=== PATIENT | male | born 1960 | race Caucasian/White ===

== ENCOUNTER → 2024-12-01 | Outpatient (CLI) | payer OTHER ==
--- NOTE | 2024-12-01 12:58 | XR ---
EXAMINATION TYPE: XR shoulder complete RT DATE OF EXAM: 12/01/2024 12:44 PM COMPARISON: None. CLINICAL INDICATION: Male, 64 years old with history of G89.29 chronic R shoulder pain, pain TECHNIQUE: Three views of the right shoulder are obtained. FINDINGS: Demineralization is present. There is no acute fracture/dislocation evident in the right shoulder. Mild spurring and narrowing at the acromioclavicular joint. Glenohumeral joint is maintaine d. The visualized right lung is clear. Suspect old healed fractures of the anterior right third and f ourth ribs. IMPRESSION: The. [facility], , 12/01/2024 12:55 PM
--- NOTE | 2024-12-01 13:00 | XR ---
EXAMINATION TYPE: XR lumbosacral spine min 4V DATE OF EXAM: 12/01/2024 12:44 PM COMPARISON: None. CLINICAL INDICATION: Male, 64 years old with history of M54.50 chronic low back pain, pain TECHNIQUE: Frontal, lateral, and bilateral oblique images of the lumbar spine are obtained. FINDINGS: There are 5 lumbar type vertebral bodies identified. The lumbar spine shows slight grade 1 retrolisthesis L3 on L4. Vertebral body heights are within normal limits. Mild disc space narrowi ng at L3-L4 level. Mild to moderate multilevel anterior and lateral spurring in the mid to lower lumb ar spine. Mild overlying arteriovascular calcification of the abdominal aorta is seen. IMPRESSION: As above. [facility], , 12/01/2024 12:57 PM
--- NOTE | 2024-12-01 13:01 | XR ---
EXAMINATION TYPE: XR cervical spine comp DATE OF EXAM: 12/01/2024 12:44 PM COMPARISON: None. CLINICAL INDICATION: Male, 64 years old with history of N54.2 cervical pain, pain TECHNIQUE: Frontal, lateral, oblique, and open mouth view of the cervical spine are obtained. FINDINGS: The cervical spine is visualized from C1 thru the mid to lower C7 level, slight grade 1 re trolisthesis C5 on C6 is seen. The pre-vertebral soft tissue appears within normal limits. The C1-C 2 articulation is within normal limits on the open mouth view. Visualized vertebral body heights and disc space heights are within normal limits. Suboptimal evaluation of C7-T1 disc space noted. The ob lique images are within normal limits. Overlying soft tissue is unremarkable. IMPRESSION: As above. [facility], , 12/01/2024 12:59 PM
== END | disposition home or self-care (01) ==
LOC: RADXRMAIN 11:57
PROVIDERS: ATTEND Nurse Practitioner
DX: M25.511 Pain in right shoulder (principal); G89.29 Other chronic pain; M43.16 Spondylolisthesis, lumbar region
CPT/HCPCS: 72050; 72110

== ENCOUNTER → 2025-01-13 | Outpatient (CLI) | payer OTHER ==
--- NOTE | 2025-01-13 11:58 | CTL ---
EXAMINATION TYPE: CT Low Dose Lung DATE OF EXAM ORDERED: 01/13/2025 COMPARISON: None CLINICAL INDICATION: Male, 64 years old with history of F17.210 NICOTINE DEPENDENCE, CIGARETTES, UNCO MPLIC; PHH, Current smoker, 1PPD x40yrs., Lung cancer screening, History of Smoking/tobacco use. TECHNIQUE: Low dose computed tomography scan was performed through the chest at 1 mm thick sections a nd reconstructed images in multiple planes at 1 mm and [address] DLP: 122.[address] CTDI: 3.0 mGy Automated exposure control for dose reduction was used. CT DIAGNOSTIC QUALITY: Satisfactory FINDINGS: Nodules: Several scattered pulmonary nodules with examples below Left lower lobe 5.6 mm solid pulmonary nodule (series 6, image 53). Left upper lobe 4.3 mm pulmonary nodule (series 6, image 35). Posterior left upper lobe 2.5 mm pulmonary nodule (series 6, image 20). Left upper lobe 4.3 mm pulmonary nodule (series 6, image 14). Right lower lobe 6.1 mm subpleural pulmonary nodule (series 6, image 49). Right upper lobe 2.9 mm pulmonary nodule (series 6, image 19). Right middle lobe 4.1 mm pulmonary nodule (series 6, image 42). Adjacent right middle lobe 4.0 cm pul monary nodule (series 6, image 43). Anterior right middle lobe 6 pulmonary pulmonary nodule (series 6, image 51). LUNGS: COPD: Severity: None Fibrosis: Severity: None Lymph nodes: None Other findings: None RIGHT PLEURAL SPACE: Effusion: None Calcification: None Thickening: None Pneumothorax: None LEFT PLEURAL SPACE: Effusion: None Calcification: None Thickening: None Pneumothorax: None HEART: Heart Size: Normal Coronary Calcification: Moderate Pericardial Effusion: None OTHER FINDINGS: Upper abdomen: Small hiatal hernia. Bony thorax: Posterior right healed upper rib fractures with bridging. Supraclavicular region: None Other: None IMPRESSION: 1. Several scattered pulmonary nodules measuring up to 6.1 cm. 2. Moderate coronary artery calcifications. CT LUNG RAD AND CT CHEST RECOMMENDATION: Lung-Rad 2 Benign Appearance or Behavior: Continue annual sc reening with LDCT in 12 months. S Modifier (other clinically significant findings): None [facility], Workstation: [employer], 01/13/2025 11:55 AM
== END ==
LOC: CPPFTMAIN 10:14
PROVIDERS: ATTEND Internal Medicine
DX: Z12.2 Encounter for screening for malignant neoplasm of respiratory organs (principal); F17.210 Nicotine dependence, cigarettes, uncomplicated
CPT/HCPCS: 71271; 94060; 94726; 94729

== ENCOUNTER → 2025-01-20 | Outpatient (CLI) | payer OTHER ==
[2025-01-20 18:49] LABS: HCT 44.5 % (39.6-50.0); HGB 15.2 g/dL (13.0-17.0); MCH 30.8 pg (27.0-32.0); MCHC 34.2 g/dL (32.0-37.0); MCV 90.3 FL (80.0-97.0); Mean Platelet Volume 10.5 FL (9.5-12.2); NRBC Per 100 WBC 0 X 10*3/uL (0.00-0.01); Platelet Count 309 X 10*3/uL (140-440); RBC 4.93 X 10*6/uL (4.40-5.60); RDW 12.8 % (11.5-14.5); WBC 12.08 X 10*3/uL (4.50-10.00)
[2025-01-20 19:00] LABS: BUN/Creat Ratio 25.71 Ratio (12.00-20.00); Calcium 9.5 mg/dL (8.7-10.3); Carbon Dioxide 26.1 mmol/L (21.6-31.8); Chloride 98 mmol/L (96-109); Glucose 87 mg/dL (70-110); Potassium 4.9 mmol/L (3.5-5.5); Sodium 137 mmol/L (135-145)
== END | disposition home or self-care (01) ==
LOC: LABWHC1 12:39
PROVIDERS: ATTEND Internal Medicine Cardiovascular Disease
DX: R06.02 Shortness of breath (principal)
CPT/HCPCS: 36415; 80048; 85027

== ENCOUNTER → 2025-03-31 | Outpatient (CLI) | payer OTHER ==
[2025-03-31 16:05] LABS: Blood Urea Nitrogen 13.4 mg/dL (9.0-27.0); Carbon Dioxide 25.3 mmol/L (21.6-31.8); Chloride 102 mmol/L (96-109); Potassium 5.1 mmol/L (3.5-5.5); Sodium 138 mmol/L (135-145)
[2025-03-31 16:16] LABS: HCT 41.8 % (39.6-50.0); HGB 13.7 g/dL (13.0-17.0); MCH 30.5 pg (27.0-32.0); MCHC 32.8 g/dL (32.0-37.0); MCV 93.1 FL (80.0-97.0); Mean Platelet Volume 9.9 FL (9.5-12.2); NRBC Per 100 WBC 0 X 10*3/uL (0.00-0.01); Platelet Count 360 X 10*3/uL (140-440); RBC 4.49 X 10*6/uL (4.40-5.60); RDW 12.7 % (11.5-14.5); WBC 12.92 X 10*3/uL (4.50-10.00)
== END | disposition home or self-care (01) ==
LOC: LABPAT 10:40
PROVIDERS: ATTEND Internal Medicine Cardiovascular Disease
DX: Z01.812 Encounter for preprocedural laboratory examination (principal); R94.39 Abnormal result of other cardiovascular function study
CPT/HCPCS: 80051; 82565; 84520; 85027

== ENCOUNTER 2025-04-02 06:12 | Day surgery (SDC) | payer OTHER ==
[2025-03-31 14:13] VITALS: BMI 25.1
[~2025-04-02 06:12] MED LIST: ALPRAZolam 0.25 MG TAB PO PRN; ALPRAZolam 0.5 MG TAB PO PRN; ATORVASTATIN 80 MG TAB PO STA; NITROGLYCERIN SL TABS 0.4 MG TAB SUBLINGUAL PRN
[2025-04-02] MEDS: SODIUM CHLORIDE 0.9% 1,000 ML in EMPTY BAG 1 BAG IV SCH (06:31)
[2025-04-02] MEDS: ASPIRIN 325 MG TAB PO STA (06:34)
[2025-04-02] MEDS: IV FLUID CONTINUATION 1,000 ML IV ONE ×2 (06:35→09:00)
[2025-04-02 06:45] VITALS: RESP 16; TEMP 98.6
[2025-04-02] MEDS: HEPARIN SODIUM,PORCINE (1 ML) 2,500 UNIT in SODIUM CHLORIDE 0.9% 250 ML IRRIGATION PRN (07:23)
[2025-04-02] MEDS: HEPARIN SODIUM,PORCINE 10,000 UNIT in SODIUM CHLORIDE 0.9% 1,000 ML IRRIGATION PRN (07:23)
[2025-04-02] MEDS: MIDAZOLAM 2 MG/2 ML VIAL IVP ONE (07:38)
[2025-04-02] MEDS: fentaNYL (PF) 50 MCG/1 ML VIAL IVP ONE (07:38)
[2025-04-02] MEDS: LIDOCAINE 1% INJ 10MG/ML (20 ML MDV) SQ ONE (07:39)
[2025-04-02] MEDS: VERAPAMIL SYRINGE (5 MG/10 ML) INTRAARTER ONE (07:45)
[2025-04-02] MEDS: HEPARIN SODIUM 1,000 UN/ML (10ML VL) IVP ONE (07:46)
[2025-04-02] MEDS: IOPAMIDOL-370 100ML BTL INJ ONE (08:30)
[2025-04-02] MEDS: SODIUM CHLORIDE 0.9% 1,000 ML IV ONE (08:31)
--- NOTE | 2025-04-02 09:51 | CC ---
CARDIAC CATHETERIZATION REPORT INDICATION: Shortness of breath with abnormal stress test. PROCEDURE NOTE: After obtaining informed consent, left heart catheterization and coronary angiogram were performed via the right radial artery using standard Salvador catheters. The patient tolerated the procedure well without any obvious immediate complications. Right radial artery access was obtained using Seldinger technique, 6-Bulgarian sheath was placed. Catheters and wires were floated into the ascending aorta under fluoroscopic guidance. The patient received verapamil and heparin per protocol. Total sedation time was 19 minutes. FINDINGS: 1. Hemodynamics; left ventricular end-diastolic pressure is 14 mm. There is no significant gradient across the aortic valve. 2. Left ventriculogram: Left ventriculogram is not performed. 3. Angiographic Data: a.Right coronary artery is a codominant vessel, shows a 50% to 60% stenosis in its distal portion. b.Left main coronary artery appears calcified, but is free of significant stenosis. Divides into left anterior descending coronary artery and circumflex coronary artery. LAD shows an 80% to 90% stenosis. Circumflex coronary artery gives off a large caliber OM branch and continues as a large AV groove circ, ostial portion of the OM shows a 30% to 40% atherosclerotic plaque. c.Three-vessel coronary artery disease with significant stenosis involving mid LAD. Moderate stenosis involving distal RCA and mild nonobstructive disease involving circumflex coronary artery. The patient's predominant symptom is in the form of shortness of breath with activity and also intermittent claudication. He is in the process of getting lower extremity arterial duplex scan done. His nuclear scan revealed a fixed inferior wall defect. I am going to have Dr. Pearce review the angiographic data and perform IFR of the LAD and right coronary artery and if significant, proceed with angioplasty. I discussed these issues with the patient. He understands and is in agreement with the plan. MMODL / IJN: [id number] /
[2025-04-02] MEDS: ACETAMINOPHEN TAB 500 MG TAB PO STA (11:32)
[2025-04-02 13:08] VITALS: BP 126/72; PULSE 62
--- NOTE | 2025-04-02 17:24 | P.CARDCATH ---
Description of Procedure: PROCEDURES PERFORMED: Bilateral coronary angiography, iFR of LAD and RCA INDICATION: DE SANTIAGO, coronary artery calcification CONSENT:I have discussed the risks, benefits and alternative therapies for the above-mentioned procedure and for both sedation/analgesia as well as necessary blood product administration, if indicated, as they pertain to this patient. The patient has indicated understanding and acceptance of the risks and procedures discussed. PROCEDURE: After the risks, benefits and alternatives of the above mentioned procedure explained in detail with the patient, informed consent was obtained. Patient was taken to the catheterization lab and prepped and draped in usual fashion. A 6-Turkish sheath had previously been placed in the right radial artery. I was asked to perform functional assessment of the RCA as well as LAD. Heparin was given. Using the FR4 catheter, a 0.014 pressure wire was advanced into the proximal RCA and normalized. It was then advanced into the mid to distal RCA and IFR was performed and was normal at 0.96. Next a 6 Turkish CLS 3.5 guide catheter was used to engage the left main. Again the 0.014 pressure wire was advanced into the left main and normalized. It was then advanced into the mid LAD and RFR was performed and was normal at 0.91. The right radial sheath was removed and a TR band was placed with hemostasis achieved. The patient tolerated the procedure well. Patient was transported back to the post catheterization holding area in stable condition. Conscious Sedation: Patient was monitored under the direct supervision of myself for conscious sedation using Versed and fentanyl for a total duration of 16 minutes HEMODYNAMICS: Ao: 145/71 SELECTIVE CORONARY ARTERIOGRAPHY: LEFT MAIN: The left main is a large caliber vessel which bifurcates into the LAD and circumflex. There is no significant stenosis. LEFT ANTERIOR DESCENDING CORONARY ARTERY: LAD is a large caliber vessel which wraps around to the apex. There a long proximal LAD 60 to 70% stenosis and otherwise relatively mild luminal irregularities LEFT CIRCUMFLEX CORONARY ARTERY: Left circumflex is a moderate caliber vessel with mild 20 to 30% OM1 stenosis and otherwise relatively normal.. RIGHT CORONARY ARTERY: The right coronary artery is a large caliber vessel which gives off a PDA and PLV branch and is the dominant vessel. There are tandem 50%, 50%, 60% mid and distal RCA stenoses FINAL IMPRESSION: 1. CAD as described above including 50 to 60% RCA stenosis, 60 to 70% LAD stenosis 2. RFR (iFR) normal of LAD and RCA PLAN: 1. Aggressive risk factor modification per most recent ACC/AHA guidelines. 2. Continue with medical therapy. If having more classic symptoms may consider further assessment or intravascular ultrasound.
== END 2025-04-02 12:56 | disposition home or self-care (01) ==
LOC: CATHCVL 06:12
PROVIDERS: ATTEND Internal Medicine Cardiovascular Disease
DX: I25.10 Atherosclerotic heart disease of native coronary artery without angina pectoris (principal); R94.39 Abnormal result of other cardiovascular function study
CPT/HCPCS: 93458; 93799; C1887; C1769 ×2; C1894; J2250; J1644 ×3; J2003; Q9967; J3010

== ENCOUNTER → 2025-06-05 | Outpatient (CLI) | payer OTHER ==
[2025-06-06 02:06] LABS: HCT 42.1 % (39.6-50.0); HGB 13.8 g/dL (13.0-17.0); MCH 30.6 pg (27.0-32.0); MCHC 32.8 g/dL (32.0-37.0); MCV 93.3 FL (80.0-97.0); NRBC Per 100 WBC 0 X 10*3/uL (0.00-0.01); Platelet Count 298 X 10*3/uL (140-440); RBC 4.51 X 10*6/uL (4.40-5.60); RDW 12.5 % (11.5-14.5); WBC 14.27 X 10*3/uL (4.50-10.00)
[2025-06-06 02:15] LABS: Anion Gap 12.20 mmol/L (4.00-12.00); Blood Urea Nitrogen 13.5 mg/dL (9.0-27.0); Carbon Dioxide 24.8 mmol/L (21.6-31.8); Chloride 99 mmol/L (96-109); Potassium 5.0 mmol/L (3.5-5.5); Sodium 136 mmol/L (135-145)
== END | disposition home or self-care (01) ==
LOC: LABPAT 13:57
PROVIDERS: ATTEND Internal Medicine
DX: Z01.812 Encounter for preprocedural laboratory examination (principal); I73.9 Peripheral vascular disease, unspecified
CPT/HCPCS: 80051; 82565; 84520; 85027